=== PATIENT | male | born 1975 | race Caucasian/White ===

== ENCOUNTER 2021-05-19 15:15 | Emergency (ER) | payer MEDICAID, SELFPAY ==
[2021-05-19 15:29] VITALS: BP 160/86; PULSE 95; RESP 32; TEMP 36.3; O2SAT 91; BMI 47.5
[2021-05-19 18:31] VITALS: BP 157/110; PULSE 86; RESP 14; O2SAT 93
[2021-05-19 18:34] VITALS: O2SAT 93
[2021-05-19] MEDS: Ipratropium/Albuterol Sulfate 3 ML AMPUL.NEB INHALATION (19:30)
--- NOTE | 2021-05-19 19:33 | EDS_ITS ---
HPI History of Present Illness Chief Complaint: Shortness of Breath Informant: patient Narrative Narrative: Patient presents with asthma exacerbation. He states he needs steroids and Symbicort. He states he got a breathing treatment by the squad. He feels back to his baseline and wants to go home because he has to be at work in 2 hours. He states he has had asthma all his life. He has been on steroids all his life but has been off for about a month. He has a nebulizer but is running out of meds at home. He states steroids are what really helped him. I was able to convince him to at least get a breathing treatment here because he still wheezing. He does state that this is his baseline. [facility] Medical History Asthma COPD (chronic obstructive pulmonary disease) Hypertension Home Medications albuterol sulfate 2.5 mg INHALATION Q4H PRN #25 vial 05/19/21 [Rx Last Taken Unknown] budesonide-formoterol [Symbicort] 2 puff INHALATION BID #10.2 g 05/19/21 [Rx Last Taken Unknown] ipratropium-albuterol ml INHALATION 05/19/21 [History Last Taken Unknown] prednisone 20 mg PO DAILY 05/19/21 [History Last Taken Unknown] prednisone 60 mg PO DAILY #15 tab 05/19/21 [Rx Last Taken Unknown] Allergy/AdvReac Type Severity Reaction Status Date / Time No Known Allergies Allergy Verified 05/19/21 15:35 Social History Smoking Status: Former smoker [facility] ED Constitutional Constitutional ED: Denies chills or fever(s) ENT ENT ED: Denies ear pain, rhinorrhea or sore throat Cardiovascular Cardiovascular: Denies chest pain or palpitations Respiratory/Chest Respiratory/Chest: Reports cough, dyspnea and other Details: Patient has wheezing and cough. No sputum production. He he was short of breath but is much better after breathing treatment. Gastrointestinal Gastrointestinal: Denies abdominal pain or nausea Genitourinary Genitourinary ED: Denies dysuria Musculoskeletal Musculoskeletal: Denies arthralgias or myalgias Integumentary Denies rash Neurologic Neurologic: Denies headache(s) Psychiatric Psychiatric: Denies depression Endocrine Endocrinology: Denies polydipsia or polyuria Allergic/Immunologic Allergic/Immunologic ED: Denies mouth swelling, tongue swelling or urticaria EXAM Physical Exam Const Vital Signs: 05/19/21 15:29 05/19/21 18:31 05/19/21 18:34 Temperature 97.4 F L Temperature Source Temporal Pulse Rate 95 86 Respiratory Rate 32 H 14 Respiratory Effort Short of Breath Labored Respiratory Depth Shallow Respiratory Pattern Blood Pressure 160/86 H 157/110 H Blood Pressure Mean 110 125 Pulse Ox 91 93 93 Oxygen Delivery Method Room Air Room Air Nasal Cannula Oxygen Flow Rate (L/min) 2 05/19/21 19:46 05/19/21 20:15 Temperature 98.4 F Temperature Source Pulse Rate 74 88 Respiratory Rate 18 20 H Respiratory Effort Respiratory Depth Respiratory Pattern Normal Blood Pressure 165/78 H Blood Pressure Mean Pulse Ox 94 Oxygen Delivery Method Oxygen Flow Rate (L/min) Positive well nourished, well developed and obese General Appearance ED: well developed and NAD; Negative for cyanotic or diaphoretic Nutritional Appearance: obese HEENT Negative for trauma Eyes PERRL Neck no lymphadenopathy and supple Chest Wall inspection of chest normal Resp Resp Narrative: Patient is on oxygen at this time. He is not normally on oxygen. He states he feels back to baseline. But he is about 93 to 94% on 2 L. I have concerns of him desaturating. We will try him off oxygen. He does want to go. He wants to go while he is not hypoxic awake alert and appropriate. Auscultation: wheezes Cardio regular rate and regular rhythm GI normal to inspection, nondistended, normoactive bowel sounds and non-tender GI Narrative: Obese but otherwise benign Palpation: soft Back/Spine no CVA tenderness Extremity General Extremety ED: Negative for tenderness Neuro oriented x3 Sensorium / Orientation: alert Psych mental status grossly normal Skin no rashes or lesions noted MDM MDM MDM Narrative Medical decision making narrative: Patient walked up and back to the bathroom. His saturations stayed 94%. He did very well. He wants to go home. We will get him in his meds and let him go. Discharge Plan Triage Chief Complaint: Shortness of Breath ED Provider: Bhavik Sullivan Dx/Rx/DC Orders Clinical Impression: Asthma exacerbation Instructions: ED Asthma, Acute (Adult) Prescriptions: New albuterol sulfate 2.5 MG/3 ML solution for nebulization 2.5 mg inhalation Q4H PRN Qty: 25 RF: 2 prednisone 20 MG tablet 60 mg PO DAILY Qty: 15 RF: 0 budesonide-formoterol [Symbicort] 160-4.5 mcg/actuation HFA aerosol inhaler 2 puff inhalation BID Qty: 10.2 RF: 1 No Action ipratropium-albuterol 0.5 mg-3 mg(2.5 mg base)/3 mL solution for nebulization inhalation RF: 0 prednisone 20 mg tablet 20 mg PO DAILY RF: 0 Stand Alone Forms: ED Work / School Excuse Primary Care Provider: Adelita Edouard Referrals: Tavo Bernard MD [NON-STAFF] - As soon as possible Disposition Disposition: Home, Self Care Discharge Date/Time: 05/19/21 20:16
[2021-05-19 19:46] VITALS: PULSE 74; RESP 18
[2021-05-19] MEDS: dexAMETHasone 10 MG/ML Vial IV (19:47)
[2021-05-19] MEDS: MethylPREDNISolone 125 MG/2 ML Vial IV (19:47)
[2021-05-19 20:15] VITALS: BP 165/78; PULSE 88; RESP 20; TEMP 36.9; O2SAT 94
== END 2021-05-19 20:16 | disposition home or self-care (01) ==
PROVIDERS: Emergency Provider Emergency Medicine; PCP Family Medicine; Visit Provider Emergency Medicine
DX: J45.901 Unspecified asthma with (acute) exacerbation (principal); J44.9 Chronic obstructive pulmonary disease, unspecified; Z68.42 Body mass index [BMI] 45.0-49.9, adult; Z79.51 Long term (current) use of inhaled steroids; Z87.891 Personal history of nicotine dependence; E66.9 Obesity, unspecified
CPT/HCPCS: 94640; 96374; 96375; 99285; A4216